=== PATIENT | female | born 1965 | race Caucasian/White ===

== ENCOUNTER 2021-02-12 16:19 | Observation (INO) ==
[2021-02-12] MEDS ORDERED: SOLU-MEDROL 125 MG IVP STA (16:37)
[2021-02-12] MEDS ORDERED: VENTOLIN HFA (PER PUFF-WITH SPACER) IH ONE (16:37)
[2021-02-12] MEDS ORDERED: SODIUM CHLORIDE 1,000 ML IV STA (16:37)
--- NOTE | 2021-02-12 16:45 | ED.PDOC ---
General ED Provider: Dr. MIGUEL ROMEO MD Chief Complaint: Shortness of Air Stated Complaint: mild to mod off and on cough since 02/08, +short of breath, diagnosed w/ covid today, hx of no covid vaccine, no fever, +diarrhea, hx asthma and htn, lmp 14yrs ago Time Seen by Provider: 02/12/21 16:32 Mode of Arrival: Walk-In Information Source: Patient Primary Care Provider: WILLIS EMERY Nursing and Triage Documentation Reviewed and Agree: Yes Does patient meet sepsis criteria?: No System Inflammatory Response Syndrome: Not Applicable Sepsis Protocol: For patient's 13 years and over: Temp is 96.8 and below OR 101 and greater Pulse >90 BPM Resp >20/minute Acutely Altered Mental Status Are patient's symptoms suggestive of a new infection, such as: -Pneumonia -Skin, Soft Tissue -Endocarditis -UTI -Bone, Joint Infection -Implantable Device -Acute Abdominal Infection -Wound Infection -Meningitis -Blood Stream Catheter Infection -Unknown Review of Systems Review Of Systems Constitutional: Reports Malaise; Denies Fever Eyes: Denies Vision change Ears, Nose, Mouth, Throat: Denies Throat swelling Respiratory: Reports Cough, Short of air and Wheezing; Denies Stridor Cardiac: Denies Chest pain GI: Reports Diarrhea; Denies Abdominal pain or Vomiting : Denies Frequency Musculoskeletal: Denies Neck pain Skin: Denies Rash or Cyanosis Neurological: Denies Cognitive dysfunction All Other Systems: Other [facility] Social History Smoking and tobacco status: Never smoker Physical Exam Physical Exam Appearance: Reports No pain distress and Obese Ill-appearing: Mild Pain Distress: Not Applicable Eyes: Reports EOMI and Conjunctiva clear ENT: Reports Rhinorrhea Neck: Supple Respiratory: Reports Airway patent and Wheezes; Denies Retractions Cardiovascular: Reports RRR GI/: Reports Other (nondistended) Musculoskeletal: Reports ROM intact Skin: Reports Warm and Dry Neurological: Reports Alert and Oriented Psychiatric: Reports Affect appropriate Interpretation Radiology Interpretation Radiology Interpretation By: Radiologist Exam Interpreted: CXR Xray Comments: left perihilar infil EKG Interpretation Time of EKG #1: 18:01 Rate: Normal Rhythm: Sinus Interpretation: no stemi Critical Care Note Critical Care Note Total Critical Care Time (mins): 0 Course Course Hematology/Chemistry: 02/12/21 16:47 02/12/21 16:47 Orders, Labs, Meds: Lab Review 0802/12/21 02/12/21 16:47 16:47 16:47 WBC 2.50 L RBC 4.62 Hgb 12.8 Hct 39.2 MCV 84.8 MCH 27.7 MCHC 32.7 RDW Coeff of Jered 14.0 Plt Count 139 L Immature Gran % (Auto) 0.0 Neut % (Auto) 40.4 L Lymph % (Auto) 50.8 H [place] % (Auto) 8.0 Eos % (Auto) 0.4 Baso % (Auto) 0.4 Neut # (Auto) 1.0 L Lymph # (Auto) 1.3 [place] # (Auto) 0.2 L Eos # (Auto) 0.0 Baso # (Auto) 0.0 Immature Gran # (Auto) 0.0 Sodium 140.9 Potassium 3.77 Chloride 108.4 H Carbon Dioxide 22.0 Anion Gap 14.27 BUN 8.8 Creatinine 0.76 Estimated GFR (MDRD) 79.00 BUN/Creatinine Ratio 11.57 Glucose 95.0 Calcium 8.69 Total Bilirubin 0.30 AST 30.6 ALT 13.1 Alkaline Phosphatase 91.5 Troponin I < 0.012 Total Protein 7.01 Albumin 4.15 Globulin 2.86 Albumin/Globulin Ratio 1.45 D-Dimer 765.23 H Orders Category Date Time Status EKG-(ED ONLY) Stat CARDIO 02/12/21 16:37 Completed METERED DOSE INHALATION Routine CARDIO 02/12/21 16:39 Completed NPO REMINDER: IMAGING ONCE CARE 02/12/21 17:37 Active CBC W/ AUTO DIFF Stat LAB 02/12/21 16:47 Completed COMPREHENSIVE METABOLIC PANEL Stat LAB 02/12/21 16:47 Completed D-DIMER Stat LAB 02/12/21 16:47 Completed TROPONIN I Stat LAB 02/12/21 16:47 Completed Albuterol Inhaler(with Spacer) [Ventolin Hfa (Per Puff- MEDS 02/12/21 16:37 Discontinued with Spacer)] 2 puff IH ONCE ONE Enoxaparin Sodium [Lovenox] MEDS 02/12/21 17:58 Stat 86 mg SUBCUT ONCE STA Methylprednisolone Sod Succ/Pf [Solu-Medrol 125 mg] MEDS 02/12/21 16:37 Discontinued 125 mg IVP ONCE STA Sodium Chloride 0.9% [Sodium Chloride] 1,000 ml MEDS 02/12/21 16:37 Discontinued IV BOLUS CHEST, 1V AP ONLY Stat RADS 02/12/21 16:[address] CHEST PE PROTOCOL Stat RADS 02/12/21 17:37 Stop Req PULMONARY VENT/PERFUSION/ NM Stat RADS 02/12/21 17:58 Ordered Medications Generic Name Dose Route Start Last Admin Trade Name Freq PRN Reason Stop Dose Admin Enoxaparin Sodium 86 mg 02/12/21 17:58 Enoxaparin Sodium 100 Mg/Ml Syr SUBCUT 02/12/21 17:59 ONCE STA Discontinued Medications Generic Name Dose Route Start Last Admin Trade Name Freq PRN Reason Stop Dose Admin Albuterol Sulfate 2 puff 02/12/21 16:37 02/12/21 17:17 Albuterol Sulfate (Ventolin Hfa) 18 Gm 1 Puff With Spacer IH 02/12/21 16:38 2 puff ONCE ONE Administration Sodium Chloride 1,000 mls @ 1,000 mls/hr 02/12/21 16:37 02/12/21 17:12 Sodium Chloride IV 02/12/21 17:36 1,000 mls/hr BOLUS STA Administration Methylprednisolone Sodium Succinate 125 mg 02/12/21 16:37 02/12/21 17:11 Methylprednisolone Sod Succ/Pf 125 Mg/2 Ml Vial IVP 02/12/21 16:38 125 mg ONCE STA Administration Vital Signs: Temp Pulse Resp BP Pulse Ox 02/12/21 16:33 98.6 F 81 18 135/112 H 100 Discharge Plan Discharge Patient Disposition: PLACED OBSERVATION Discharge Problem: Pneumonia due to COVID-19 virus, D-dimer, elevated Prescriptions: No Action lisinopril-hydrochlorothiazide 1 TAB tablet 1 tab PO DAILY RF: 0 ED Provider: MIGUEL ROMEO Condition: Stable Physician Progress Note: [pt with elevated ddimer and short of breath is allergic to iv dye is admitted as an obs pt to get the next available vq scan which is tomorrow morning, pt O2sat RA within normal range, diagnosis is covid pneumonia, improved after albuterol MDI, care to Dr Jim at 19:00
[2021-02-12 16:53] LABS: BASOPHILS % (AUTO) 0.4 % (0.0-3.0); EOSINOPHILS % (AUTO) 0.4 % (0.0-7.0); HEMATOCRIT 39.2 % (37.0-47.0); HEMOGLOBIN 12.8 g/dl (12.0-16.0); LYMPHOCYTES # (AUTO) 1.3 K/uL (0.60-3.4); LYMPHOCYTES % (AUTO) 50.8 (10.0-50.0); MEAN CORPUSCULAR HEMOGLOBIN 27.7 pg (27.0-31.0); MEAN CORPUSCULAR HGB CONC 32.7 (31.8-35.4); MEAN CORPUSCULAR VOLUME 84.8 fl (81.0-99.0); MONOCYTES # (AUTO) 0.2 K/uL (0.4-2.0); NEUTROPHILS % (AUTO) 40.4 % (42.2-75.2); PLATELET COUNT 139 10^3/uL (140-440); RED BLOOD COUNT 4.62 10^6/ul (4.20-5.40)
[2021-02-12 17:07] LABS: ALANINE AMINOTRANSFERASE 13.1 U/L (0-35); ALBUMIN 4.15 g/dL (3.5-5.0); ALKALINE PHOSPHATASE 91.5 U/L (38-126); ASPARTATE AMINO TRANSFERASE 30.6 U/L (14-36); BLOOD UREA NITROGEN 8.8 mg/dL (7-17); CALCIUM 8.69 mg/dL (8.4-10.2); CHLORIDE 108.4 mmol/L (98-107); CREATININE 0.76 mg/dL (0.60-1.30); POTASSIUM 3.77 mmol/L (3.5-5.1); SODIUM 140.9 mmol/L (134.5-145); TOTAL PROTEIN 7.01 g/dL (6.3-8.2)
[2021-02-12 17:20] LABS: TROPONIN I < 0.012 ng/ml (0.0000-0.120)
--- NOTE | 2021-02-12 17:40 | DI ---
EXAM: Chest one-view. HISTORY: Cough. COMPARISON: None. FINDINGS: Increased patchy markings are present in the left perihilar region. The cardiac silhouett e is normal in size. There is no pulmonary edema present. There is no pleural effusion identified. There is no acute osseous abnormality. IMPRESSION: Left perihilar atelectasis and/or pneumonia.
[2021-02-12] MEDS ORDERED: LOVENOX SUBCUT STA ×2 (17:58→18:08)
[2021-02-12] MEDS ORDERED: ZESTRIL PO STA (18:08)
[2021-02-12] MEDS ORDERED: SOLU-MEDROL 40 MG IVP STA (18:08)
[2021-02-12] MEDS ORDERED: ATROPINE SULFATE PFS IVP PRN (18:08)
[2021-02-12] MEDS ORDERED: NITROSTAT SL PRN (18:08)
[2021-02-12] MEDS ORDERED: VENTOLIN HFA (PER PUFF-WITH SPACER) IH STA (18:08)
[2021-02-12] MEDS ORDERED: TYLENOL PO PRN (18:08)
[2021-02-12] MEDS ORDERED: VENTOLIN HFA (PER PUFF-WITH SPACER) IH SCH ×2 (18:30→23:30)
[2021-02-12] MEDS ORDERED: VENTOLIN HFA (PER PUFF-WITH SPACER) IH PRN (18:43)
[2021-02-12 20:55] VITALS: BMI 29.7
[2021-02-12 21:09] LABS: BILIRUBIN,URINE Negative (NEGATIVE); CLARITY,URINE Clear (CLEAR); COLOR,URINE Yellow (YELLOW); GLUCOSE, URINE (UA) Negative (NEGATIVE); KETONES,URINE 3+ (NEGATIVE); LEUKOCYTE ESTERASE ,URINE Negative (NEGATIVE); NITRITE,URINE Positive (NEGATIVE); PH,URINE 5.5 (5-9); PROTEIN,URINE Negative (NEGATIVE); URINE, BLOOD Negative (NEGATIVE); UROBILINOGEN,URINE 0.2 (0.2)
[2021-02-12 21:15] LABS: BACTERIA,URINE 3+ (NOT PRESENT); SQUAMOUS EPITHELIAL CELL,UR 0-2 (0-5)
[2021-02-12] MEDS: SOLU-MEDROL 40 MG IVP SCH (23:45)
[2021-02-13 00:02] LABS: CREATINE KINASE 75.8 U/L (30-135)
[2021-02-13 00:17] LABS: TROPONIN I < 0.012 ng/ml (0.0000-0.120)
[2021-02-13] MEDS: SOLU-MEDROL 40 MG IVP SCH ×3 (05:16→17:37)
[2021-02-13 08:32] LABS: HEMATOCRIT 38.4 % (37.0-47.0); HEMOGLOBIN 12.4 g/dl (12.0-16.0); MEAN CORPUSCULAR HEMOGLOBIN 27.3 pg (27.0-31.0); MEAN CORPUSCULAR HGB CONC 32.3 (31.8-35.4); MEAN CORPUSCULAR VOLUME 84.4 fl (81.0-99.0); PLATELET COUNT 140 10^3/uL (140-440); RDW COEFFICIENT OF VARIATION 13.7 % (11.6-14.8); RED BLOOD COUNT 4.55 10^6/ul (4.20-5.40)
[2021-02-13 08:39] LABS: ALANINE AMINOTRANSFERASE 14.7 U/L (0-35); ALBUMIN 3.86 g/dL (3.5-5.0); ALKALINE PHOSPHATASE 82.8 U/L (38-126); ASPARTATE AMINO TRANSFERASE 29.8 U/L (14-36); BILIRUBIN,TOTAL 0.23 mg/dL (0.2-1.3); BLOOD UREA NITROGEN 9.6 mg/dL (7-17); CALCIUM 8.41 mg/dL (8.4-10.2); CARBON DIOXIDE 19.6 mmol/L (22-30.0); CREATINE KINASE 78.3 U/L (30-135); CREATININE 0.51 mg/dL (0.60-1.30); GLUCOSE 131.3 mg/dL (74-106); POTASSIUM 3.58 mmol/L (3.5-5.1); TOTAL PROTEIN 6.67 g/dL (6.3-8.2)
[2021-02-13 08:52] LABS: TROPONIN I < 0.012 ng/ml (0.0000-0.120)
[2021-02-13 09:14] LABS: WHITE BLOOD COUNT 1.58 K/ul (4.6-10.2)
[2021-02-13 09:15] LABS: ANISOCYTOSIS NOT PRESENT (NOT PRESENT)
[2021-02-13 10:11] LABS: BORDETELLA PARAPERTUSSIS (PCR) NOT DETECTED (NOT DETECT); BORDETELLA PERTUSSIS (PCR) NOT DETECTED (NOT DETECT); CHLAMYDIA PNEUMONIAE (PCR) NOT DETECTED (NOT DETECT); CORONAVIRUS 229E (PCR) NOT DETECTED (NOT DETECT); CORONAVIRUS HKU1 (PCR) NOT DETECTED (NOT DETECT); CORONAVIRUS NL63 (PCR) NOT DETECTED (NOT DETECT); CORONAVIRUS OC43 (PCR) NOT DETECTED (NOT DETECT); HUMAN METAPNEUMOVIRUS (PCR) NOT DETECTED (NOT DETECT); HUMAN RHINOVIRUS/ENTEROV (PCR) NOT DETECTED (NOT DETECT); INFLUENZA B (PCR) NOT DETECTED (NOT DETECT); MYCOPLASMA PNEUMONIAE (PCR) NOT DETECTED (NOT DETECT); PARAINFLUENZA VIRUS 1 (PCR) NOT DETECTED (NOT DETECT); PARAINFLUENZA VIRUS 2 (PCR) NOT DETECTED (NOT DETECT); PARAINFLUENZA VIRUS 3 (PCR) NOT DETECTED (NOT DETECT); PARAINFLUENZA VIRUS 4 (PCR) NOT DETECTED (NOT DETECT); RESPIRATORY SYNCYTIAL V (PCR) NOT DETECTED (NOT DETECT)
[2021-02-13 11:01] LABS: ADENOVIRUS (PCR) NOT DETECTED (NOT DETECT); SARS_COV_2 (PCR) DETECTED (NOT DETECT)
--- NOTE | 2021-02-13 11:24 | NM ---
EXAM: Perfusion lung scan HISTORY: Shortness of breath. Elevated D-dimer. COVID-19 positive. COMPARISON: None of this type. Chest x-ray 02/12/2021. PROCEDURE: Ventilation: This portion of the standard examination was not performed. Perfusion: The patient was injected with 5.0 mCi of 99 technetium MAA intravenously after which ante rior, posterior , lateral and anterior and posterior oblique images were obtained. FINDINGS: The examination demonstrates a generally uniform distribution of activity within the lung f ields without evidence of segmental or subsegmental perfusion defects suggesting pulmonary embolus. IMPRESSION: No evidence of pulmonary embolus. Results faxed to the department for transmission to the patient's nurse/physician at to 11:18 a.m.
--- NOTE | 2021-02-13 12:38 | PCM.PROG ---
Date Seen by Provider: 02/13/21 Time Seen by Provider: 12:37 Subjective: Hospitalized for eval /tx COVID. CXR pos for Left perihilar atelectasis and/or pneumonia. Lung scan neg for embolus Objective: Vitals: T=97.9 F, P=76, R=17, YU=003/89, SPO2=98 HEENT: Clear Neck: Supple Lungs: Good air flow. No significant cradkles or wheezes CVS: HR RRR Abdomen: soft-non tender Extremities: Neg clubbing, cyanosos Neurological:WNL Skin: Rash not appreciated Lab/Tests/Diagnostic Imaging: REFER TO CHART SECTION (1) Pneumonia due to COVID-19 virus: Status: Acute Code(s): U07.1 - COVID-19; J12.82 - Pneumonia due to coronavirus disease 2019 SNOMED Code(s): 162105210598894140 (2) D-dimer, elevated: Status: Acute Code(s): R79.89 - Other specified abnormal findings of blood chemistry SNOMED Code(s): 162544983 (3) Leukopenia: Status: Acute Code(s): D72.819 - Decreased white blood cell count, unspecified SNOMED Code(s): 25778454 Plan: Continue present treatment IV steriods as ordered by Dr Chelsea Richmond lab in AM Observ addn 24 hr
[2021-02-13] MEDS: DOXYCYCLINE HYCLATE PO SCH ×2 (14:07→22:34)
[2021-02-13] MEDS: ROCEPHIN 1 GM/50 ML D5W 1 GM/50 ML BAG IV SCH (14:08)
[2021-02-14 05:41] LABS: HEMATOCRIT 37.6 % (37.0-47.0); HEMOGLOBIN 11.9 g/dl (12.0-16.0); IMMATURE GRANULOCYTE % (AUTO) 0.3 % (0.0-5.0); LYMPHOCYTES % (AUTO) 15.8 (10.0-50.0); MEAN CORPUSCULAR HEMOGLOBIN 27.1 pg (27.0-31.0); MEAN CORPUSCULAR HGB CONC 31.6 (31.8-35.4); MEAN CORPUSCULAR VOLUME 85.6 fl (81.0-99.0); MONOCYTES # (AUTO) 0.3 K/uL (0.4-2.0); MONOCYTES % (AUTO) 5.3 (0-10); NEUTROPHILS # (AUTO) 4.7 K/ul (2.0-6.9); NEUTROPHILS % (AUTO) 78.6 % (42.2-75.2); PLATELET COUNT 148 10^3/uL (140-440); RDW COEFFICIENT OF VARIATION 13.8 % (11.6-14.8); RED BLOOD COUNT 4.39 10^6/ul (4.20-5.40); WHITE BLOOD COUNT 6.03 K/ul (4.6-10.2)
[2021-02-14 05:49] VITALS: BP 135/91; TEMP 97.6
[2021-02-14 05:50] LABS: ALANINE AMINOTRANSFERASE 15.4 U/L (0-35); ALBUMIN 3.63 g/dL (3.5-5.0); ALKALINE PHOSPHATASE 75.6 U/L (38-126); ASPARTATE AMINO TRANSFERASE 31.5 U/L (14-36); BILIRUBIN,TOTAL 0.19 mg/dL (0.2-1.3); BLOOD UREA NITROGEN 14.4 mg/dL (7-17); CALCIUM 8.6 mg/dL (8.4-10.2); CARBON DIOXIDE 23.4 mmol/L (22-30.0); CHLORIDE 108.1 mmol/L (98-107); CREATININE 0.62 mg/dL (0.60-1.30); GLUCOSE 136.3 mg/dL (74-106); POTASSIUM 3.61 mmol/L (3.5-5.1); SODIUM 139.4 mmol/L (134.5-145); TOTAL PROTEIN 6.2 g/dL (6.3-8.2)
--- NOTE | 2021-02-14 09:46 | PCM.DC ---
Final Diagnosis: COVID pneumonia. UTI. (1) Pneumonia due to COVID-19 virus: Status: Acute Code(s): U07.1 - COVID-19; J12.82 - Pneumonia due to coronavirus disease 2019 SNOMED Code(s): 103501301239160678 (2) D-dimer, elevated: Status: Resolved Code(s): R79.89 - Other specified abnormal findings of blood chemistry SNOMED Code(s): 064150172 (3) Leukopenia: Status: Resolved Code(s): D72.819 - Decreased white blood cell count, unspecified SNOMED Code(s): 36310359 (4) UTI (urinary tract infection): Status: Acute Code(s): N39.0 - Urinary tract infection, site not specified SNOMED Code(s): 43680420 Reason for Hospitalization: Admitted to hospital 2 days ago (02/12) after ER evaluation dx COVID infection with mild pneumonia, but no hypoxia. Due to the elevated D-dimer (as is typical for COVID infections), a radiology study was indicated to R/O PE. She is allergic to IV contrast and she had to wait a day to have a V/Q scan, which was normal. Then her WBC count dropped to the 2-3 (thousand) range, again from the viral infection, and she was kept another day in the hospital. This morning, WBC is 6 (thousand), and she is ready for discharge. Oxygen sat is mid to upper 90's on room air. No respiratory distress. A urine culture revealed E. Coli with sensitivity to augmentin and bactrim. She says she has recurrent UTI's and has been on many abx. Both the augmentin and bactrim cause GI upset, in fact that is why the bactrim is on her allergy list. She has zofran and phenergan at home and I advised her to take nausea medicine about an hour before taking the abx. Augmentin chosen. She did receive IV rocephin as well while in the hospital. She was up and about and tolerating a regular diet at discharge. She will be given information by the nursing staff and advised to have a routine F/U (using COVID protocol) with her PCP. Prognosis at Discharge: Good. Condition at Discharge: Stable. Medications at Discharge: Ambulatory Orders Medication Instructions Recorded lisinopril 20 1 tab PO DAILY 01/15/13 mg-hydrochlorothiazide 12.5 mg tablet amoxicillin 500 mg-potassium 1 tab PO BID #14 tab 02/14/21 clavulanate 125 mg tablet (Augmentin) Lab/Diagnostics: Refer to inpatient chart. Transient leukopenia due to the COVID infection. Education Provided to Patient and Family: COVID pneumonia. UTI. Follow-ups: Call PCP in a few days to advise how she is doing. Discharge Disposition: Home Hospital Course: She did well in hospital. Oxygen sat remained good, over 94 % on RA. V/Q scan negative. Empirically given rocephin and doxycycline, the latter she did not want to take any more of due to GI upset. No respiratory distress at d/c. UTI dx, Rx augmentin. Plan: D/C home with guidance on follow-up.
[2021-02-14] MEDS: DOXYCYCLINE HYCLATE PO SCH (09:57)
[2021-02-14] MEDS: ROCEPHIN 1 GM/50 ML D5W 1 GM/50 ML BAG IV SCH (09:59)
--- NOTE | 2021-02-15 01:25 | ED.PDOC ---
General ED Provider: Dr. REA BRIZUELA Chief Complaint: Shortness of Air Time Seen by Provider: 02/12/21 16:32 Primary Care Provider: WILLIS EMERY Sepsis Protocol: For patient's 13 years and over: Temp is 96.8 and below OR 101 and greater Pulse >90 BPM Resp >20/minute Acutely Altered Mental Status Are patient's symptoms suggestive of a new infection, such as: -Pneumonia -Skin, Soft Tissue -Endocarditis -UTI -Bone, Joint Infection -Implantable Device -Acute Abdominal Infection -Wound Infection -Meningitis -Blood Stream Catheter Infection -Unknown [facility] Medical History (Updated 02/15/21 @ 01:48 by REA BRIZUELA MD) Asthma GERD (gastroesophageal reflux disease) Hyperlipidemia Hypertension Migraine Osteoarthritis Osteoporosis Pneumonia due to COVID-19 virus Family History (Updated 02/12/21 @ 21:05 by DESTINY MÁRQUEZ, RN) MATERNAL GRANDMOTHER Breast cancer PATERNAL GRANDMOTHER Skin cancer PATERNAL GRANDFATHER Myocardial infarct MATERNAL GRANDFATHER Myocardial infarct FATHER Skin cancer Mother Coronary stent patent Mother COPD (chronic obstructive pulmonary disease) Mother Hypothyroidism Social History (Updated 02/12/21 @ 21:01 by DESTINY MÁRQUEZ, LULA) Smoking and tobacco status: Never smoker Surgical History (Updated 02/13/21 @ 10:55 by FELI TOMAS) History of section History of cholecystectomy Previous back surgery Female Reproductive History Menstrual Hx Hysterectomy: No Course Course Hematology/Chemistry: 02/14/21 05:13 02/14/21 05:13 Orders, Labs, Meds: Lab Review 02/12/21 02/12/21 02/12/21 16:47 16:47 16:47 WBC 2.50 L RBC 4.62 Hgb 12.8 Hct 39.2 MCV 84.8 MCH 27.7 MCHC 32.7 RDW Coeff of Jered 14.0 Plt Count 139 L Immature Gran % (Auto) 0.0 Neut % (Auto) 40.4 L Lymph % (Auto) 50.8 H [place] % (Auto) 8.0 Eos % (Auto) 0.4 Baso % (Auto) 0.4 Neut # (Auto) 1.0 L Lymph # (Auto) 1.3 [place] # (Auto) 0.2 L Eos # (Auto) 0.0 Baso # (Auto) 0.0 Immature Gran # (Auto) 0.0 Sodium 140.9 Potassium 3.77 Chloride 108.4 H Carbon Dioxide 22.0 Anion Gap 14.27 BUN 8.8 Creatinine 0.76 Estimated GFR (MDRD) 79.00 BUN/Creatinine Ratio 11.57 Glucose 95.0 Calcium 8.69 Total Bilirubin 0.30 AST 30.6 ALT 13.1 Alkaline Phosphatase 91.5 Troponin I < 0.012 Total Protein 7.01 Albumin 4.15 Globulin 2.86 Albumin/Globulin Ratio 1.45 D-Dimer 765.23 H Orders Category Date Time Status PLACE PATIENT OBSERVATION .TO MEDSURG (MONITORED BED ADMISSION 02/12/21 18:08 Completed ) EKG-(ED ONLY) Stat CARDIO 02/12/21 16:37 Completed EKG-(IP & OP ONLY) DAILY CARDIO 02/13/21 06:00 Completed EKG-(IP & OP ONLY) DAILY CARDIO 02/14/21 06:00 Completed METERED DOSE INHALATION Routine CARDIO 02/12/21 16:39 Completed METERED DOSE INHALATION Routine CARDIO 02/12/21 18:25 Completed OXYGEN Routine CARDIO 02/12/21 18:09 Completed ACTIVITY .BR with BRP CARE 02/12/21 18:09 Completed IP: INSERT SALINE LOCK ONCE CARE 02/12/21 18:09 Completed NPO REMINDER: IMAGING ONCE CARE 02/12/21 17:37 Completed TELEMETRY MONITORING TELE CARE 02/12/21 18:08 Completed TELEMETRY MONITORING TELE CARE 02/12/21 18:09 Completed VITAL SIGNS Q8HR CARE 02/12/21 18:09 Completed CBC W/ AUTO DIFF Stat LAB 02/12/21 16:47 Completed CBC W/ AUTO DIFF Stat LAB 02/12/21 18:09 Completed COMPREHENSIVE METABOLIC PANEL Stat LAB 02/12/21 16:47 Completed COMPREHENSIVE METABOLIC PANEL Stat LAB 02/12/21 18:09 Completed CREATINE KINASE Q8H LAB 02/12/21 18:15 Completed CREATINE KINASE Stat LAB 02/13/21 08:23 Completed D-DIMER Stat LAB 02/12/21 16:47 Completed MANUAL DIFFERENTIAL Stat LAB 02/13/21 08:23 Completed TROPONIN I Q8H LAB 02/12/21 18:15 Completed TROPONIN I Stat LAB 02/12/21 16:47 Completed TROPONIN I Stat LAB 02/13/21 08:23 Completed URINALYSIS C & S IF INDICATED Stat LAB 02/12/21 21:05 Completed 0.9 % Sodium Chloride [Saline Flush] MEDS 02/12/21 21:00 Discontinued 1 syr IVF Q8HR Acetaminophen [Tylenol] MEDS 02/12/21 18:08 Discontinued 650 mg PO Q4H PRN Albuterol Inhaler(with Spacer) [Ventolin Hfa (Per Puff- MEDS 02/12/21 16:37 Discontinued with Spacer)] 2 puff IH ONCE ONE Albuterol Inhaler(with Spacer) [Ventolin Hfa (Per Puff- MEDS 02/12/21 18:30 Discontinued with Spacer)] 2 puff IH Q6H Albuterol Inhaler(with Spacer) [Ventolin Hfa (Per Puff- MEDS 02/12/21 23:30 Discontinued with Spacer)] 2 puff IH Q6H Atropine Sulfate Inj [Atropine Sulfate Pfs] MEDS 02/12/21 18:08 Discontinued 0.5 mg IVP ONCE PRN Enoxaparin Sodium [Lovenox] MEDS 02/12/21 17:58 Discontinued 86 mg SUBCUT ONCE STA Lisinopril [Zestril] MEDS 02/12/21 18:08 Discontinued 10 mg PO ONCE STA Methylprednisolone Sod Succ/Pf [Solu-Medrol 125 mg] MEDS 02/12/21 16:37 Discontinued 125 mg IVP ONCE STA Methylprednisolone Sod Succ/Pf [Solu-Medrol 40 mg] MEDS 02/12/21 23:00 Discontinued 40 mg IVP Q6H Nitroglycerin [Nitrostat] MEDS 02/12/21 18:08 Discontinued 0.4 mg SL Q5MIN X 3 DOSES PRN Sodium Chloride 0.9% [Sodium Chloride] 1,000 ml MEDS 02/12/21 16:37 Discontinued IV BOLUS CHEST, 1V AP ONLY Stat RADS 02/12/21 16:37 Completed PULMONARY PERFUSION/ NUC MED Stat RADS 02/13/21 17:58 Completed Medications Discontinued Medications Generic Name Dose Route Start Last Admin Trade Name Freq PRN Reason Stop Dose Admin Acetaminophen 650 mg 02/12/21 18:08 Acetaminophen 325 Mg Tablet PO Q4H PRN Headache Albuterol Sulfate 2 puff 02/12/21 16:37 02/12/21 17:17 Albuterol Sulfate (Ventolin Hfa) 18 Gm 1 Puff With Spacer IH 02/12/21 16:38 2 puff ONCE ONE Administration Albuterol Sulfate 2 puff 02/12/21 18:30 02/12/21 18:55 Albuterol Sulfate (Ventolin Hfa) 18 Gm 1 Puff With Spacer IH Not Given Q6H ROSALES Albuterol Sulfate 2 puff 02/12/21 23:30 Albuterol Sulfate (Ventolin Hfa) 18 Gm 1 Puff With Spacer IH Q6H ROSALES Albuterol Sulfate 2 puff 02/12/21 18:43 02/13/21 05:15 Albuterol Sulfate (Ventolin Hfa) 18 Gm 1 Puff With Spacer IH 2 puff RTQID PRN Administration shortness of breath Atropine Sulfate 0.5 mg 02/12/21 18:08 Atropine Sulfate Inj 1 Mg/10 Ml Disp.Syrin IVP ONCE PRN Symptomatic Bradycardia Doxycycline Hyclate 100 mg 02/13/21 14:00 02/14/21 09:57 Doxycycline Hyclate 100 Mg Capsule PO 02/16/21 13:59 Not Given Q12HR ROSALES Enoxaparin Sodium 86 mg 02/12/21 17:58 02/12/21 18:45 Enoxaparin Sodium 100 Mg/Ml Syr SUBCUT 02/12/21 17:59 86 mg ONCE STA Administration Sodium Chloride 1,000 mls @ 1,000 mls/hr 02/12/21 16:37 02/12/21 17:12 Sodium Chloride IV 02/12/21 17:36 1,000 mls/hr BOLUS STA Administration CEFTRIAXONE/D5W 1 GM PREMIX 1 gm in 50 mls @ 75 mls/hr 02/13/21 14:00 02/14/21 09:59 Rocephin 1 Gm/50 Ml D5w IV 02/16/21 13:59 75 mls/hr DAILY ROSALES Administration Lisinopril 10 mg 02/12/21 18:08 02/12/21 18:45 Lisinopril 10 Mg Tablet PO 02/12/21 18:09 10 mg ONCE STA Administration Methylprednisolone Sodium Succinate 125 mg 02/12/21 16:37 02/12/21 17:11 Methylprednisolone Sod Succ/Pf 125 Mg/2 Ml Vial IVP 02/12/21 16:38 125 mg ONCE STA Administration Methylprednisolone Sodium Succinate 40 mg 02/12/21 23:00 02/13/21 17:37 Methylprednisolone Sod Succ/Pf 40 Mg/Ml Vial IVP 02/13/21 17:01 40 mg Q6H ROSALES Administration Nitroglycerin 0.4 mg 02/12/21 18:08 Nitroglycerin 0.4 Mg Tab.Subl SL Q5MIN X 3 DOSES PRN Chest Pain Sodium Chloride 1 syr 02/12/21 21:00 02/14/21 05:42 0.9% Sodium Chloride 10 Ml Disp.Syrin IVF 1 syr Q8HR ROSALES Administration Vital Signs: Temp Pulse Resp BP Pulse Ox 02/12/21 16:33 98.6 F 81 18 135/112 H 100 Discharge Plan Discharge Patient Disposition: PLACED OBSERVATION Discharge Problem: Pneumonia due to COVID-19 virus, D-dimer, elevated ED Provider: MIGUEL ROMEO Condition: Stable Physician Progress Note: []
== END 2021-02-14 11:20 | disposition home or self-care (01) ==
LOC: SCU 16:19 → ED 16:19 → SCU 20:05
PROVIDERS: ADMIT Emergency Medicine Emergency Medical Services; ATTEND Emergency Medicine
DX: N39.0 Urinary tract infection, site not specified; D72.819 Decreased white blood cell count, unspecified; J12.82 Pneumonia due to coronavirus disease 2019; R06.02 Shortness of breath; R05 Cough; I10 Essential (primary) hypertension; R79.89 Other specified abnormal findings of blood chemistry

== ENCOUNTER 2021-02-17 12:31 | Inpatient (IN) ==
[2021-02-17] MEDS ORDERED: ZOFRAN 4 MG/2 ML IVP ONE (12:49)
[2021-02-17] MEDS ORDERED: SODIUM CHLORIDE 1,000 ML IV STA (12:49)
[2021-02-17 12:59] LABS: BASOPHILS % (AUTO) 0.2 % (0.0-3.0); HEMATOCRIT 42.4 % (37.0-47.0); IMMATURE GRANULOCYTE % (AUTO) 0.4 % (0.0-5.0); LYMPHOCYTES # (AUTO) 1.3 K/uL (0.60-3.4); LYMPHOCYTES % (AUTO) 27.2 (10.0-50.0); MEAN CORPUSCULAR HEMOGLOBIN 27.4 pg (27.0-31.0); MONOCYTES # (AUTO) 0.3 K/uL (0.4-2.0); MONOCYTES % (AUTO) 6.3 (0-10); NEUTROPHILS % (AUTO) 65.9 % (42.2-75.2); PLATELET COUNT 151 10^3/uL (140-440); RED BLOOD COUNT 5.11 10^6/ul (4.20-5.40)
[2021-02-17 13:12] LABS: ALANINE AMINOTRANSFERASE 16.9 U/L (0-35); ALBUMIN 4.07 g/dL (3.5-5.0); ALKALINE PHOSPHATASE 83.3 U/L (38-126); ASPARTATE AMINO TRANSFERASE 44.1 U/L (14-36); BILIRUBIN,TOTAL 0.56 mg/dL (0.2-1.3); BLOOD UREA NITROGEN 11.2 mg/dL (7-17); CALCIUM 8.61 mg/dL (8.4-10.2); CARBON DIOXIDE 22.2 mmol/L (22-30.0); CREATININE 0.84 mg/dL (0.60-1.30); GLUCOSE 102.8 mg/dL (74-106); SODIUM 136.3 mmol/L (134.5-145); TOTAL PROTEIN 7.06 g/dL (6.3-8.2)
[2021-02-17] MEDS ORDERED: PHENERGAN 25 MG/ML VIAL 25 MG in SODIUM CHLORIDE 50 ML IV ONE (13:12)
--- NOTE | 2021-02-17 13:12 | ED.PDOC ---
General ED Provider: Dr. JENNIFER VECNES Chief Complaint: Chest Pain Stated Complaint: Diagnosed with COVID 19 9 days ago. comes to the ER with chest pain that started late this morning on the left side radiating to the left arm. Review of records from the floor while she was admitted to get a V q scan showed she had similar breast like pain. Also complains of nausea and vomiting. Asking for Zofran. Time Seen by Provider: 02/17/21 12:49 Primary Care Provider: WILLIS EMERY Nursing and Triage Documentation Reviewed and Agree: Yes Does patient meet sepsis criteria?: No System Inflammatory Response Syndrome: Not Applicable Sepsis Protocol: For patient's 13 years and over: Temp is 96.8 and below OR 101 and greater Pulse >90 BPM Resp >20/minute Acutely Altered Mental Status Are patient's symptoms suggestive of a new infection, such as: -Pneumonia -Skin, Soft Tissue -Endocarditis -UTI -Bone, Joint Infection -Implantable Device -Acute Abdominal Infection -Wound Infection -Meningitis -Blood Stream Catheter Infection -Unknown Review of Systems Review Of Systems Constitutional: Reports No symptoms Eyes: Reports No symptoms Ears, Nose, Mouth, Throat: Reports No symptoms Respiratory: Reports Cough and Short of air Cardiac: Reports Chest pain GI: Reports Diarrhea, Nausea and Vomiting : Reports No symptoms Musculoskeletal: Reports Muscle pain Skin: Reports No symptoms Neurological: Reports Anxiety All Other Systems: Reviewed and Negative [facility] Medical History (Updated 02/17/21 @ 15:54 by JENNIFER VENCES MD) Asthma GERD (gastroesophageal reflux disease) Hyperlipidemia Hypertension Migraine Osteoarthritis Osteoporosis Pneumonia due to COVID-19 virus Family History MATERNAL GRANDMOTHER Breast cancer PATERNAL GRANDMOTHER Skin cancer PATERNAL GRANDFATHER Myocardial infarct MATERNAL GRANDFATHER Myocardial infarct FATHER Skin cancer Mother Coronary stent patent Mother COPD (chronic obstructive pulmonary disease) Mother Hypothyroidism Social History Smoking and tobacco status: Never smoker Surgical History History of section History of cholecystectomy Previous back surgery Female Reproductive History Menstrual Hx Hysterectomy: No Physical Exam Physical Exam Appearance: Reports Ill-appearing Ill-appearing: Mild Pain Distress: Moderate Eyes: Reports AURA and EOMI ENT: Reports Nose normal and Oropharynx normal Neck: Supple Respiratory: Reports Airway patent, Breath sounds clear and Breath sounds equal Cardiovascular: Reports RRR, Pulses normal and No rub GI/: Reports Soft and Nontender Musculoskeletal: Reports Normal strength and ROM intact Skin: Reports Warm and Dry Neurological: Reports Motor intact, Alert and Oriented Psychiatric: Reports Anxious Interpretation Radiology Interpretation Radiology Interpretation By: Radiologist Radiology Results: Positive (- Bilateral ground-glass opacities concerning for COVID-19 pneumonia, new from the prior study from 02/12/2021 Correlation with COVID-19 status recommended. - Please note study was not performed with contrast. Therefore evaluation for pulmonary thromboembolism is not possible. - Small hiatal herni) Exam Interpreted: CT Scan EKG Interpretation Time of EKG #1: 12:37 Rate: Normal Rhythm: Sinus Ectopy: None Hard[place]: NL ST Segment: Normal Critical Care Note Critical Care Note Total Critical Care Time (mins): 45 Course Course Hematology/Chemistry: 02/17/21 12:50 02/17/21 12:50 Orders, Labs, Meds: Lab Review 02/17/21 02/17/21 02/17/21 12:50 12:50 12:50 WBC 4.60 RBC 5.11 Hgb 14.0 Hct 42.4 MCV 83.0 MCH 27.4 MCHC 33.0 RDW Coeff of Jered 14.0 Plt Count 151 Immature Gran % (Auto) 0.4 Neut % (Auto) 65.9 Lymph % (Auto) 27.2 Ocean % (Auto) 6.3 Eos % (Auto) 0.0 Baso % (Auto) 0.2 Neut # (Auto) 3.0 Lymph # (Auto) 1.3 Ocean # (Auto) 0.3 L Eos # (Auto) 0.0 Baso # (Auto) 0.0 Immature Gran # (Auto) 0.0 Sodium 136.3 Potassium 2.78 L* Chloride 102.0 Carbon Dioxide 22.2 Anion Gap 14.88 BUN 11.2 Creatinine 0.84 Estimated GFR (MDRD) 71.00 BUN/Creatinine Ratio 13.33 Glucose 102.8 Calcium 8.61 Total Bilirubin 0.56 AST 44.1 H ALT 16.9 Alkaline Phosphatase 83.3 Total Creatine Kinase 270.0 H CK-MB (CK-2) < 0.220 CK-MB (CK-2) % 0.0800 Troponin I < 0.012 Total Protein 7.06 Albumin 4.07 Globulin 2.99 Albumin/Globulin Ratio 1.36 D-Dimer 1601.23 H Adenovirus (PCR) B. pertussis DNA (PCR) B.parapertussis DNA PCR C. pneumoniae DNA (PCR) Coronavirus OC43 (PCR) Coronavirus HKU1 (PCR) Coronavirus 229E (PCR) Coronavirus NL63 (PCR) Human Metapneumovir PCR Influenza Type A (PCR) Influenza B (RT-PCR) M. pneumoniae (PCR) Parainfluenza 1 (PCR) Parainfluenza 2 (PCR) Parainfluenza 3 (PCR) Parainfluenza 4 (PCR) RSV (PCR) Entero/Rhino (PCR) SARS-CoV-2 (PCR) 02/17/21 13:30 WBC RBC Hgb Hct MCV MCH MCHC RDW Coeff of Jered Plt Count Immature Gran % (Auto) Neut % (Auto) Lymph % (Auto) Ocean % (Auto) Eos % (Auto) Baso % (Auto) Neut # (Auto) Lymph # (Auto) Ocean # (Auto) Eos # (Auto) Baso # (Auto) Immature Gran # (Auto) Sodium Potassium Chloride Carbon Dioxide Anion Gap BUN Creatinine Estimated GFR (MDRD) BUN/Creatinine Ratio Glucose Calcium Total Bilirubin AST ALT Alkaline Phosphatase Total Creatine Kinase CK-MB (CK-2) CK-MB (CK-2) % Troponin I Total Protein Albumin Globulin Albumin/Globulin Ratio D-Dimer Adenovirus (PCR) Not detected B. pertussis DNA (PCR) Not detected B.parapertussis DNA PCR Not detected C. pneumoniae DNA (PCR) Not detected Coronavirus OC43 (PCR) Not detected Coronavirus HKU1 (PCR) Not detected Coronavirus 229E (PCR) Not detected Coronavirus NL63 (PCR) Not detected Human Metapneumovir PCR Not detected Influenza Type A (PCR) Not detected Influenza B (RT-PCR) Not detected M. pneumoniae (PCR) Not detected Parainfluenza 1 (PCR) Not detected Parainfluenza 2 (PCR) Not detected Parainfluenza 3 (PCR) Not detected Parainfluenza 4 (PCR) Not detected RSV (PCR) Not detected Entero/Rhino (PCR) Not detected SARS-CoV-2 (PCR) Detected H Orders Category Date Time Status ADMIT PATIENT INPATIENT .TO [facility] (MONITORED BED) ADMISSION 02/17/21 15:14 Active EKG-(ED ONLY) Stat CARDIO 02/17/21 12:49 Completed EKG-(IP & OP ONLY) DAILY CARDIO 02/18/21 06:00 Ordered EKG-(IP & OP ONLY) DAILY CARDIO 02/19/21 06:00 Ordered ACTIVITY .Up ad Izzy CARE 02/17/21 15:15 Active GIVE HS SNACK 2100 CARE 02/17/21 15:19 Active INTAKE & OUTPUT Q8HR CARE 02/17/21 15:15 Active IP: INSERT SALINE LOCK ONCE CARE 02/17/21 15:15 Active TELEMETRY MONITORING TELE CARE 02/17/21 15:15 Active VITAL SIGNS Q4HR CARE 02/17/21 15:15 Active CLEAR LIQUID DIET DIETARY 02/17/21 Dinner Ordered HS SNACK DIETARY 02/17/21 Dinner Ordered BASIC METABOLIC PANEL DAILY@0600 LAB 02/18/21 06:00 Ordered BASIC METABOLIC PANEL DAILY@0600 LAB 02/19/21 06:00 Ordered CBC W/ AUTO DIFF DAILY@0600 LAB 02/18/21 06:00 Ordered CBC W/ AUTO DIFF DAILY@0600 LAB 02/19/21 06:00 Ordered CBC W/ AUTO DIFF Stat LAB 02/17/21 12:50 Completed COMPREHENSIVE METABOLIC PANEL Stat LAB 02/17/21 12:50 Completed CREATINE KINASE Stat LAB 02/17/21 12:50 Completed D-DIMER Stat LAB 02/17/21 12:50 Completed RESPIRATORY PANEL 2.1 (PCR) Stat LAB 02/17/21 13:30 Completed TROPONIN I Q8H LAB 02/17/21 21:30 Ordered TROPONIN I Q8H LAB 02/18/21 05:30 Ordered TROPONIN I Stat LAB 02/17/21 12:50 Completed Enoxaparin Sodium [Lovenox] MEDS 02/17/21 21:00 Active 90 mg SUBCUT BID Ondansetron HCl/Pf [Zofran 4 mg/2 ml] MEDS 02/17/21 12:49 Discontinued 4 mg IVP ONCE ONE Potassium Chloride [Potassium Chloride 10 Meq/100 ml MEDS 02/17/21 13:17 D iscontinued Premix] 10 meq in 100 ml IV ONCE Potassium Chloride [Potassium Chloride 20 Meq/100 ml MEDS 02/17/21 15:15 Active Premix] 40 meq in 200 ml IV ONCE Potassium Chloride/D5-0.9%NaCl [D5%-Ns-KCl 20 Meq/l IV MEDS 02/17/21 15:30 Active Cristina] 1,000 ml IV 75 mls/hr Promethazine HCl [Phenergan 25 mg/ml Vial] MEDS 02/17/21 13:16 Discontinued 25 mg .ROUTE .STK-MED ONE Promethazine HCl [Phenergan 25 mg/ml Vial] 25 mg MEDS 02/17/21 13:12 Discontinued 0.9 % Sodium Chloride [Sodium Chloride] 50 ml IV ONCE Sodium Chloride 0.9% [Sodium Chloride] 1,000 ml MEDS 02/17/21 12:49 Active IV 100 mls/hr RESUSCITATION STATUS Routine OTHERS 02/17/21 15:[address] CHEST W/O CONTRAST Stat RADS 02/17/21 15:02 Completed Medications Generic Name Dose Route Start Last Admin Trade Name Freq PRN Reason Stop Dose Admin Albuterol Sulfate 2 puff 02/17/21 20:00 Albuterol Sulfate (Ventolin Hfa) 18 Gm 1 Puff With Spacer IH RTQID ROSALES Enoxaparin Sodium 90 mg 02/17/21 21:00 Enoxaparin Sodium 100 Mg/Ml Syr SUBCUT BID ROSALES Sodium Chloride 1,000 mls @ 100 mls/hr 02/17/21 12:49 02/17/21 12:57 Sodium Chloride IV 02/17/21 22:48 100 mls/hr .Q10H STA Administration Potassium Chloride/Dextrose/Sod Cl 1,000 mls @ 75 mls/hr 02/17/21 15:30 D5%-Ns-Kcl 20 Meq/L Iv Cristina IV .[id number] ROSALES Potassium Chloride 40 meq in 200 mls @ 50 mls/hr 02/17/21 15:15 Potassium Chloride 20 Meq/100 Ml Premix IV 02/17/21 19:14 ONCE STA Piperacillin Sod/Tazobactam 50 mls @ 50 mls/hr 02/17/21 15:31 Sod 3.375 gm/ Sodium Chloride IV 02/17/21 16:30 ONCE ONE Piperacillin Sod/Tazobactam 50 mls @ 50 mls/hr 02/17/21 16:00 Sod 3.375 gm/ Sodium Chloride IV 02/20/21 15:59 Q6HR ROSALES Methylprednisolone Sodium Succinate 40 mg 02/17/21 16:00 Methylprednisolone Sod Succ/Pf 40 Mg/Ml Vial IVP Q6HR ROSALES Morphine Sulfate 2 mg 02/17/21 15:34 Morphine Sulfate 2 Mg/Ml Syringe IVP Q4H PRN Chest Pain Ondansetron HCl 4 mg 02/17/21 15:34 Ondansetron Hcl/Pf 4 Mg/2 Ml Sdv IVP Q6H PRN Nausea / Vomiting Discontinued Medications Generic Name Dose Route Start Last Admin Trade Name Freq PRN Reason Stop Dose Admin Promethazine HCl 25 mg/ Sodium 51 mls @ 75 mls/hr 02/17/21 13:12 02/17/21 13:23 Chloride IV 02/17/21 13:52 75 mls/hr ONCE ONE Administration Potassium Chloride 10 meq in 100 mls @ 100 mls/hr 02/17/21 13:17 02/17/21 14: 00 Potassium Chloride 10 Meq/100 Ml Premix IV 02/17/21 14:16 100 mls/hr ONCE STA Administration Ondansetron HCl 4 mg 02/17/21 12:49 02/17/21 12:57 Ondansetron Hcl/Pf 4 Mg/2 Ml Sdv IVP 02/17/21 12:50 4 mg ONCE ONE Administration Vital Signs: Temp Pulse Resp BP Pulse Ox 02/17/21 13:05 98.3 F 90 20 120/86 98 SUZI Risk Score Age >/= 65: No >/= 3 CAD Risk Factors: No Known CAD (Stenosis >/= 50%): No ASA Use in Past 7 Days: No Severe Angina (>/= 2 episodes in 24 hours): No EKG ST Changes >/= 0.5mm: No Postive Cardiac Marker: No SUZI Total Score: 0 SUZI Risk Score: Risk Score Odds of by 30D 0 0.1 (0.1-0.2) 1 0.3 (0.2-0.3) 2 0.4 (0.3-0.5) 3 0.7 (0.6-0.9) 4 1.2 (1.0-1.5) 5 2.2 (1.9-2.6) 6 3.0 (2.5-3.6) 7 4.8 (3.8-6.1) Discharge Plan Discharge Patient Disposition: ADMITTED INPATIENT Discharge Problem: Pneumonia due to COVID-19 virus, Hypopotassemia, Nausea ED Provider: JENNIFER VENCES Condition: Stable Physician Progress Note: []
[2021-02-17 13:13] LABS: POTASSIUM 2.78 mmol/L (3.5-5.1)
[2021-02-17] MEDS ORDERED: PHENERGAN 25 MG/ML VIAL ONE (13:16)
[2021-02-17] MEDS ORDERED: POTASSIUM CHLORIDE 10 MEQ/100 ML PREMIX 10 MEQ/100 ML BAG IV STA (13:17)
[2021-02-17 13:24] LABS: TROPONIN I < 0.012 ng/ml (0.0000-0.120)
[2021-02-17 13:27] LABS: CREATINE KINASE MB < 0.220 ng/ml (0.0-2.38)
[2021-02-17 13:35] LABS: BORDETELLA PARAPERTUSSIS (PCR) NOT DETECTED (NOT DETECT); BORDETELLA PERTUSSIS (PCR) NOT DETECTED (NOT DETECT); CHLAMYDIA PNEUMONIAE (PCR) NOT DETECTED (NOT DETECT); CORONAVIRUS 229E (PCR) NOT DETECTED (NOT DETECT); CORONAVIRUS HKU1 (PCR) NOT DETECTED (NOT DETECT); CORONAVIRUS NL63 (PCR) NOT DETECTED (NOT DETECT); CORONAVIRUS OC43 (PCR) NOT DETECTED (NOT DETECT); HUMAN METAPNEUMOVIRUS (PCR) NOT DETECTED (NOT DETECT); HUMAN RHINOVIRUS/ENTEROV (PCR) NOT DETECTED (NOT DETECT); INFLUENZA B (PCR) NOT DETECTED (NOT DETECT); MYCOPLASMA PNEUMONIAE (PCR) NOT DETECTED (NOT DETECT); PARAINFLUENZA VIRUS 1 (PCR) NOT DETECTED (NOT DETECT); PARAINFLUENZA VIRUS 2 (PCR) NOT DETECTED (NOT DETECT); PARAINFLUENZA VIRUS 3 (PCR) NOT DETECTED (NOT DETECT); PARAINFLUENZA VIRUS 4 (PCR) NOT DETECTED (NOT DETECT); RESPIRATORY SYNCYTIAL V (PCR) NOT DETECTED (NOT DETECT)
[2021-02-17 14:41] LABS: SARS_COV_2 (PCR) DETECTED (NOT DETECT)
[2021-02-17 14:42] LABS: ADENOVIRUS (PCR) NOT DETECTED (NOT DETECT)
[2021-02-17] MEDS ORDERED: POTASSIUM CHLORIDE 20 MEQ/100 ML PREMIX 40 MEQ/200 ML BAG IV STA (15:15)
[2021-02-17] MEDS ORDERED: ZOSYN 3.375 GM 3.375 GM in SODIUM CHLORIDE 50 ML IV ONE (15:31)
[2021-02-17] MEDS ORDERED: ZOFRAN 4 MG/2 ML IVP PRN (15:34)
[2021-02-17] MEDS ORDERED: MORPHINE 2 MG/ML SYRINGE IVP PRN (15:34)
--- NOTE | 2021-02-17 15:43 | CT ---
EXAM: Chest CT without contrast 02/17/2021 HISTORY: The spleen elevated D-dimer TECHNIQUE: Axial CT images were obtained through the chest without the administration of intravenous contrast. Coronal and sagittal reformatted images were also submitted for interpretation. COMPARISON: Chest radiograph 02/12/2021. FINDINGS: The major airways are patent. Bilateral ground-glass opacities concerning for COVID-19 pneumonia. Correlation with COVID-19 status recommended. Calcified granuloma in the left lower lobe No pneumothorax or pleural fluid. The heart size is normal without pericardial effusion. The unenhanced thoracic aorta is normal in si ze. No pathologic lymphadenopathy is identified. Soft tissue structures are unremarkable. The visualized portions of the upper abdomen demonstrate cholecystectomy clips. Small hiatal hernia. Posterior fusion of the thoracic spine. IMPRESSION: - Bilateral ground-glass opacities concerning for COVID-19 pneumonia, new from the prior study from 0 02/12/2021 Correlation with COVID-19 status recommended. - Please note study was not performed with contrast. Therefore evaluation for pulmonary thromboembol ism is not possible. - Small hiatal hernia. - Cholecystectomy clips. All CT scans are performed using dose optimization techniques as appropriate to the performed exam an d include at least one of the following: Automated exposure control, adjustment of the mA and/or kV according t o size, and the use of iterative reconstruction technique.
[2021-02-17] MEDS: SOLU-MEDROL 40 MG IVP SCH ×2 (16:07→18:17)
[2021-02-17] MEDS: D5%-NS-KCL 20 MEQ/L IV SOL 1,000 ML IV SCH (16:38)
[2021-02-17 17:14] VITALS: BMI 28.2
[2021-02-17] MEDS: ZOSYN 3.375 GM 3.375 GM in SODIUM CHLORIDE 50 ML IV SCH (18:17)
[2021-02-17] MEDS: VENTOLIN HFA (PER PUFF-WITH SPACER) IH SCH (20:43)
[2021-02-17] MEDS: LOVENOX SUBCUT SCH (21:06)
[2021-02-17] MEDS ORDERED: POTASSIUM CHLORIDE 20 MEQ VIAL- ADDITIVE ONLY IV ONE (21:31)
[2021-02-18] MEDS: ZOSYN 3.375 GM 3.375 GM in SODIUM CHLORIDE 50 ML IV SCH ×5 (00:38→23:34)
[2021-02-18] MEDS: SOLU-MEDROL 40 MG IVP SCH ×5 (00:42→23:40)
[2021-02-18] MEDS: VENTOLIN HFA (PER PUFF-WITH SPACER) IH SCH ×4 (04:58→20:24)
[2021-02-18 06:06] LABS: CALCIUM 8.14 mg/dL (8.4-10.2); CARBON DIOXIDE 20.5 mmol/L (22-30.0); CHLORIDE 107.5 mmol/L (98-107); CREATININE 0.64 mg/dL (0.60-1.30); GLUCOSE 163.7 mg/dL (74-106); POTASSIUM 3.69 mmol/L (3.5-5.1); SODIUM 137.8 mmol/L (134.5-145)
[2021-02-18 06:07] LABS: HEMATOCRIT 37.7 % (37.0-47.0); HEMOGLOBIN 12.2 g/dl (12.0-16.0); IMMATURE GRANULOCYTE % (AUTO) 0.4 % (0.0-5.0); LYMPHOCYTES # (AUTO) 0.9 K/uL (0.60-3.4); MEAN CORPUSCULAR HEMOGLOBIN 27.4 pg (27.0-31.0); MEAN CORPUSCULAR HGB CONC 32.4 (31.8-35.4); MEAN CORPUSCULAR VOLUME 84.5 fl (81.0-99.0); MONOCYTES # (AUTO) 0.1 K/uL (0.4-2.0); MONOCYTES % (AUTO) 4.1 (0-10); NEUTROPHILS # (AUTO) 1.5 K/ul (2.0-6.9); NEUTROPHILS % (AUTO) 60.5 % (42.2-75.2); PLATELET COUNT 169 10^3/uL (140-440); RDW COEFFICIENT OF VARIATION 14.3 % (11.6-14.8); RED BLOOD COUNT 4.46 10^6/ul (4.20-5.40); WHITE BLOOD COUNT 2.43 K/ul (4.6-10.2)
[2021-02-18 06:20] LABS: TROPONIN I < 0.012 ng/ml (0.0000-0.120)
[2021-02-18] MEDS: D5%-NS-KCL 20 MEQ/L IV SOL 1,000 ML IV SCH (09:42)
[2021-02-18] MEDS: LOVENOX SUBCUT SCH ×2 (09:43→20:21)
[2021-02-19] MEDS: D5%-NS-KCL 20 MEQ/L IV SOL 1,000 ML IV SCH ×2 (01:52→17:22)
[2021-02-19] MEDS: VENTOLIN HFA (PER PUFF-WITH SPACER) IH SCH ×4 (05:02→19:45)
[2021-02-19 05:08] LABS: BASOPHILS % (AUTO) 0.1 % (0.0-3.0); HEMATOCRIT 35.3 % (37.0-47.0); HEMOGLOBIN 11.4 g/dl (12.0-16.0); IMMATURE GRANULOCYTE % (AUTO) 0.5 % (0.0-5.0); LYMPHOCYTES # (AUTO) 1.2 K/uL (0.60-3.4); LYMPHOCYTES % (AUTO) 16.2 (10.0-50.0); MEAN CORPUSCULAR HEMOGLOBIN 27.7 pg (27.0-31.0); MEAN CORPUSCULAR HGB CONC 32.3 (31.8-35.4); MEAN CORPUSCULAR VOLUME 85.7 fl (81.0-99.0); MONOCYTES # (AUTO) 0.4 K/uL (0.4-2.0); MONOCYTES % (AUTO) 4.8 (0-10); NEUTROPHILS # (AUTO) 5.8 K/ul (2.0-6.9); NEUTROPHILS % (AUTO) 78.4 % (42.2-75.2); PLATELET COUNT 193 10^3/uL (140-440); RDW COEFFICIENT OF VARIATION 14.4 % (11.6-14.8); RED BLOOD COUNT 4.12 10^6/ul (4.20-5.40); WHITE BLOOD COUNT 7.36 K/ul (4.6-10.2)
[2021-02-19 05:25] LABS: BLOOD UREA NITROGEN 8.8 mg/dL (7-17); CALCIUM 8.21 mg/dL (8.4-10.2); CARBON DIOXIDE 21.5 mmol/L (22-30.0); CHLORIDE 109.4 mmol/L (98-107); CREATININE 0.66 mg/dL (0.60-1.30); GLUCOSE 160.8 mg/dL (74-106); POTASSIUM 3.62 mmol/L (3.5-5.1); SODIUM 140.5 mmol/L (134.5-145)
[2021-02-19] MEDS: ZOSYN 3.375 GM 3.375 GM in SODIUM CHLORIDE 50 ML IV SCH ×2 (05:28→12:30)
[2021-02-19] MEDS: SOLU-MEDROL 40 MG IVP SCH ×3 (06:29→18:05)
[2021-02-19 08:27] LABS: COHb 2.2 (0.5-1.5); HCO3 24.2 (21-28); MetHb 1.3 (0-1.5); TCO2 25.2 (19-24); sO2 93.2 % (94-98); tHb 11.7 g/dl (11.7-17.4)
[2021-02-19] MEDS: LOVENOX SUBCUT SCH ×2 (09:52→21:07)
[2021-02-19] MEDS: K-DUR PO SCH ×2 (09:52→17:22)
[2021-02-19] MEDS ORDERED: TYLENOL PO PRN (09:55)
--- NOTE | 2021-02-19 17:49 | PCM.PROG ---
Date Seen by Provider: 02/19/21 Time Seen by Provider: 08:30 Subjective: states that she is feeling better. occasionally gets short of breath when she walks but denies any chest pain. Objective: Vitals: T=98.3 F, P=79, R=19, DA=008/83, SPO2=95 HEENT: [Pupils are equal with good eye movements ] Neck: [No JVD appreciated ] Lungs: [Clear to auscultation bilaterally ] CVS: [Regular s1 and s2 only No murmurs appreciated] Abdomen: [Obese soft not tender to palpation.] Extremities: [ No Edema noted on exam, no cyanosis] Neurological: [Awake and alert with no focal neurological Deficits Appreciated. ] Skin: [Good Skin Turgor, No rash noted] Lab/Tests/Diagnostic Imaging: [] (1) Pneumonia due to COVID-19 virus: Status: Acute Code(s): U07.1 - COVID-19; J12.82 - Pneumonia due to coronavirus disease 2018 SNOMED Code(s): 547064666173139839 Assessment: COVID day # 11 with her Oxygen saturation stable over 92 % continues to stay up. Is at risk for PE but could not get CT contrast due to allergy to Iodine. Will get VQ scan tomorrow morning. (2) Hypopotassemia: Status: Acute Code(s): E87.6 - Hypokalemia SNOMED Code(s): 15712830 Assessment: K improved from admission. Will add 40 meq today and continue IV fluid with Potassium. Plan: Continue to replace potassium continue DVT prophylaxis Await Vq scan in the AM Discontinue Zosyn as patient has had negative blood cultures, Pneumonia is due to COVID-19 and has a low procalcitonin level. continue steroids . May discharge in the AM if Vq scan is normal.
[2021-02-19] MEDS ORDERED: LIDOCAINE VISCOUS 2% 15 ML UD MUCOUSMEMB PRN (20:31)
[2021-02-19] MEDS: NYSTATIN ORAL SUSP PO SCH (21:07)
[2021-02-20] MEDS: SOLU-MEDROL 40 MG IVP SCH ×3 (01:00→11:46)
[2021-02-20] MEDS: VENTOLIN HFA (PER PUFF-WITH SPACER) IH SCH ×3 (04:25→14:23)
[2021-02-20] MEDS: NYSTATIN ORAL SUSP PO SCH ×3 (06:24→18:20)
[2021-02-20 06:42] LABS: HEMATOCRIT 34.6 % (37.0-47.0); HEMOGLOBIN 11.1 g/dl (12.0-16.0); IMMATURE GRANULOCYTE # (AUTO) 0.1 (0.0-1.0); IMMATURE GRANULOCYTE % (AUTO) 1.4 % (0.0-5.0); LYMPHOCYTES # (AUTO) 1.1 K/uL (0.60-3.4); MEAN CORPUSCULAR HEMOGLOBIN 27.3 pg (27.0-31.0); MEAN CORPUSCULAR HGB CONC 32.1 (31.8-35.4); MONOCYTES # (AUTO) 0.4 K/uL (0.4-2.0); NEUTROPHILS # (AUTO) 5.5 K/ul (2.0-6.9); NEUTROPHILS % (AUTO) 78.3 % (42.2-75.2); PLATELET COUNT 190 10^3/uL (140-440); RDW COEFFICIENT OF VARIATION 14.6 % (11.6-14.8); RED BLOOD COUNT 4.07 10^6/ul (4.20-5.40); WHITE BLOOD COUNT 7.01 K/ul (4.6-10.2)
[2021-02-20 06:58] LABS: BLOOD UREA NITROGEN 8.9 mg/dL (7-17); CALCIUM 8.36 mg/dL (8.4-10.2); CARBON DIOXIDE 23.8 mmol/L (22-30.0); CHLORIDE 108.2 mmol/L (98-107); CREATININE 0.52 mg/dL (0.60-1.30); GLUCOSE 136.5 mg/dL (74-106); SODIUM 138.8 mmol/L (134.5-145)
[2021-02-20 07:04] LABS: LYMPHOCYTES % (AUTO) 15.3 (10.0-50.0)
[2021-02-20] MEDS: D5%-NS-KCL 20 MEQ/L IV SOL 1,000 ML IV SCH ×2 (07:23→09:52)
[2021-02-20] MEDS: LOVENOX SUBCUT SCH (09:06)
[2021-02-20] MEDS: K-DUR PO SCH ×2 (09:06→18:20)
--- NOTE | 2021-02-20 09:18 | NM ---
EXAM: Perfusion lung scan HISTORY: Elevated D-dimer. Shortness of breath. COVID-19 pneumonia. COMPARISON: 02/13/2021. CT 02/17/2021. PROCEDURE: Ventilation: This portion of the standard examination was not performed. Perfusion: The patient was injected with 5.0 mCi of 99 technetium MAA intravenously after which ante rior, posterior , lateral and anterior and posterior oblique images were obtained. FINDINGS: The current examination demonstrates a generally uniform distribution of activity within th e lung machado without evidence of segmental or subsegmental perfusion defects suggesting pulmonary em bolus and not significantly changed from prior examination. IMPRESSION: 1. No evidence of pulmonary embolus. 2. If there is strong clinical reason to suspect pulmonary embolus, a CTA examination may be helpful .
[2021-02-20 11:03] VITALS: TEMP 97.8
[2021-02-20 15:15] VITALS: BP 133/79
--- NOTE | 2021-03-19 10:37 | PN ---
DATE OF VISIT: 02/18/2021 SUBJECTIVE: Lupe is sitting in the SCU room 3. She does not appear in any distress. She does not complain of any chest pain. She denies any nausea or vomiting. VITALS: Temperature 98.6, pulse 80, respiratory rate 18, blood pressure 125/90. REVIEW OF SYSTEMS: Denies headaches, visual changes, tinnitus or chest pain. Positive for shortness of breath with exertion. No hemoptysis, abdominal pain, blood in the stool, urinary symptoms or seizures. PHYSICAL EXAMINATION: HEENT: Pupils are round. NECK: Supple. CHEST: Clear with occasional rhonchi sounds but clears with cough. CARDIOVASCULAR: Regular rate and rhythm. ABDOMEN: Soft, nontender. EXTREMITIES: Distal extremities without cyanosis or edema. IMPRESSION: 1. Pneumonia secondary to COVID 2. Hyperkalemia PLAN: 1. Potassium is noted. We are going to repeat Labs in the AM 2. Further disposition per hospitalist. TOMASA
== END 2021-02-20 18:00 | disposition home or self-care (01) | DRG 177 ==
LOC: ED 12:31 → SCU 15:24 → MEDSURG B 02-19 08:46
PROVIDERS: ADMIT Internal Medicine Geriatric Medicine; ATTEND Emergency Medicine
DX: J45.909 Unspecified asthma, uncomplicated; E87.6 Hypokalemia; J12.82 Pneumonia due to coronavirus disease 2019; M19.90 Unspecified osteoarthritis, unspecified site; I10 Essential (primary) hypertension; R11.2 Nausea with vomiting, unspecified; R07.9 Chest pain, unspecified; U07.1 COVID-19; M81.0 Age-related osteoporosis without current pathological fracture; E78.5 Hyperlipidemia, unspecified